=== PATIENT | female | born 1990 | race Two or more races ===

== ENCOUNTER 2017-02-06 23:53 | Emergency (ER) | payer SELFPAY ==
[2017-02-06 23:59] VITALS: BP 150/90; BMI 34.5
--- NOTE | 2017-02-07 00:23 | DR.GENAD ---
HPI - PCP Primary Care Physician: GHADA QUIROGA Comment HPI Comment: Patient refers epigastric pain recent eradication treatment Took motrin today pain is worst than before - Complaint/Symptoms Chief Complaint Doctors Comments: Epigastric pain Chief Complaint:: PT C/O EPIGASTRIC PAIN FOR 3 HOURS I HAD H-PYLORI 3 WEEKS AGO I DID TREATMENT FOR IT - Nurses notes reviewed Nurses Notes Review: Yes - Source History Provided: Patient - Mode of Arrival Mode of Arrival: Ambulatory - Timing Onset of Chief Complaint: 02/06/17 PMH - PMH Past Medical History: No Past Surgical History: Yes Surgical History: - Family History History of Family Medical Conditions: No - Social History Does any household member use tobacco: No Alcohol Use: None Do you use any recreational Drugs:: No Lives With: Family Lives Where: Home - infectious screening In the last 2 months have you had wt loss of >10#?: NO Have you had fever, night sweats or hemotysis?: No Have you traveled outside the country in the last 6 months?: No Isolation: Standard ROS - Review of Systems Constitutional: No Symptoms Reported Eyes: No Symptoms Reported ENTM: No Symptoms Reported Respiratoy: No Symptoms Reported Cardiovascular: No Symptoms Reported Gastrointestinal/Abdominal: Abdominal Pain Genitourinary: No Symptoms Reported Neurological: No Symptoms Reported Musculoskeletal: No Symptoms Reported Integumentary: No Symptoms Reported Hematologic/Lymphatic: No Symptoms Reported Endocrine: No Symptoms Reported Psychiatric: No Symptoms Reported All Other Systems: Reviewed and Negative PE - Vital Signs Vitals: Temperature 98.6 F Pulse Rate 89 Respiratory Rate 22 Blood Pressure 150/90 O2 Sat by Pulse Oximetry 100 - General Limitations: No Limitations General Appearance: Alert, In No Apparent Distress - Head Head Exam: Normal Inspection - Eyes Eye exam: Normal Appearance, PERRL, EOMI - ENT ENT Exam: Normal Exam External Ear Exam: Normal External Inspection TM/Canal Exam: Bilateral Normal Nose Exam: Normal Nose Exam Mouth Exam: Normal Inspection Throat Exam: Normal Inspection - Neck Neck Exam: Normal Inspection - Chest Chest Inspection: Normal Inspection - Respiratory Respiratory Exam: Normal Lung Sounds Bilat Respiratory Exam: Bilateral Clear to Auscultation - Cardiovascular Cardiovascular Exam: Regular Rate, Normal Rhythm - Abdominal Exam Abdominal Exam: Normal Inspection, Normal Bowel Sounds, Soft, Tenderness Abdominal Tenderness: Epigastrium - Extremities Extremities Exam: Normal Inspection - Back Back Exam: Normal Inspection - Neurologic Neurological Exam: Alert, Oriented X3 - Psychiatric Psychiatric Exam: Normal Affect, Normal Mood - Skin Skin Exam: Warm, Dry, Intact, Normal Color Course - Education/Counseling Education/Counseling: Patient Educated On: Treatment, Diagnosis, Needs for Follow Up - Diagnosis Discharge Problem: Epigastric pain, PUD (peptic ulcer disease) Abdominal pain Qualifiers: Abdominal location: epigastric Qualified Code(s): R10.13 - Epigastric pain - Discharge Plan Disposition: HOME, SELF-CARE Condition: Stable Prescriptions: Pantoprazole Sodium 40 mg [PROTONIX 40 MG *] 40 mg PO DAILY #30 tab Sucralfate [CARAFATE TAB 1 GM *] 1 gm PO DAILY #30 tab - Follow ups/Referrals Follow ups/Referrals: COURTNEY URRUTIA [Primary Care Provider] - 3 days - Instructions Instructions: Peptic Ulcer, [id number], Heartburn, [id number], Gastroesophageal Reflux Disease, Pediatric Additional Instructions: Follow up with PCP. Avoid NSAIDs
[2017-02-07] MEDS ORDERED: LEVSIN/MAALOX/LIDOC VISC PO ONE (00:37)
[2017-02-07] MEDS ORDERED: LEVSIN/MAALOX/LIDOC VISC ONE (00:38)
[2017-02-07] MEDS ORDERED: DEMEROL INJ IM ONE (00:54)
[2017-02-07] MEDS ORDERED: ZOFRAN INJ 4 MG VIAL IM ONE (00:54)
[2017-02-07] MEDS ORDERED: ZOFRAN INJ 4 MG VIAL ONE (00:55)
[2017-02-07] MEDS ORDERED: DEMEROL INJ ONE (00:56)
== END 2017-02-07 01:20 | disposition home or self-care (01) ==
LOC: ER 23:53
DX: K27.9 Peptic ulcer, site unspecified, unspecified as acute or chronic, without hemorrhage or perforation (principal); R10.13 Epigastric pain
CPT/HCPCS: 96372; 99282; 99283; J2175; J2405

== ENCOUNTER 2017-12-16 19:46 | Emergency (ER) | payer OTHER ==
[2017-12-16 19:56] VITALS: BP 108/58; BMI 32.0
== END 2017-12-16 21:20 | disposition left against medical advice (07) ==
LOC: ER 20:00
DX: R11.0 Nausea (principal)
CPT/HCPCS: 99281